=== PATIENT | male | born 1965 | race American Indian/Alaskan Native ===

== ENCOUNTER 2016-08-11 06:02 | Day surgery (SDC) | payer OTHER ==
[2016-08-11] MEDS ORDERED: ECOTRIN PO ONE (06:28)
[2016-08-11] MEDS ORDERED: NACL 0.9% 500 ML 500 ML IV SCH (07:00)
[2016-08-11 07:09] LABS: Basophils % (Auto) 0.3 % (0.0-1.8); Eosinophils % (Auto) 1.7 % (0.0-4.3); Hematocrit 42.8 % (35.5-45.6); Hemoglobin 14.8 gm/dl (11.8-15.2); Mean Corpuscular HGB Conc 35 % (32-34); Mean Corpuscular Hemoglobin 32 pg (28-32); Mean Corpuscular Volume 92 fl (84-94); Platelet Count 219 K/mm3 (140-440); Red Blood Count 4.66 M/mm3 (3.65-5.03); Red Cell Distribution Width 12.7 % (13.2-15.2); White Blood Count 3.7 K/mm3 (4.5-11.0)
[2016-08-11 07:17] LABS: INR 1.15 (0.87-1.13)
[2016-08-11 07:37] LABS: Anion Gap 14 mmol/L; Blood Urea Nitrogen 16 mg/dL (9-20); Calcium 8.4 mg/dL (8.4-10.2); Carbon Dioxide 28 mmol/L (22-30); Chloride 102.9 mmol/L (98-107); Glucose 91 mg/dL (75-100); Potassium 3.6 mmol/L (3.6-5.0); Sodium 141 mmol/L (137-145)
[2016-08-11] MEDS ORDERED: HEPARIN/NS 5000 UNIT/500ML(CATH LAB) 1,000 ML IR ONE (08:16)
[2016-08-11] MEDS ORDERED: NITROGLYCERIN SYRINGE 3 ML ONE (08:17)
[2016-08-11] MEDS: SUBLIMAZE ONE ×2 (08:48→09:05)
[2016-08-11] MEDS: VERSED ONE ×2 (08:49→09:05)
[2016-08-11] MEDS: CALAN ONE ×2 (08:49→09:13)
[2016-08-11] MEDS: XYLOCAINE 2% INFILTRATI ONE ×2 (08:50→09:10)
[2016-08-11] MEDS: HEPARIN 10,000 UNITS/10 ML ONE ×2 (08:50→09:13)
--- NOTE | 2016-08-11 09:31 | Short Stay Summary ---
Short Stay Documentation Date of service: 08/11/16 - History H&P: obtained from office - Allergies and Medications Current Medications: Allergies No Known Allergies Allergy (Verified 08/11/16 06:33) Home Medications Medication Instructions Recorded Confirmed Last Taken Type amLODIPine [Norvasc] 5 mg PO DAILY 08/11/16 08/11/16 08/10/16 History Active Medications Sodium Chloride (Nacl 0.9% 500 Ml) 500 mls @ 50 mls/hr IV DIRECT DOTTIE Stop: 08/11/16 16:59 Last Admin: 08/11/16 06:40 Dose: 50 mls/hr - Brief post op/procedure progress note Date of procedure: 08/11/16 Pre-op diagnosis: chest pain Post-op diagnosis: same Procedure: see report Anesthesia: local Estimated blood loss: none Pathology: none - Disposition Condition at discharge: Good Disposition: DISCHARGED TO HOME OR SELFCARE - Discharge Diagnoses (1) Chest pain Status: Chronic Qualifiers: Chest pain type: unspecified Qualified Code(s): R07.9 - Chest pain, unspecified (2) Abnormal stress ECG with treadmill Status: Resolved (3) Hypertension Status: Chronic Qualifiers: Hypertension type: essential hypertension Qualified Code(s): I10 - Essential (primary) hypertension Short Stay Discharge Plan Activity: advance as tolerated Diet: low fat, low cholesterol
[2016-08-11] MEDS ORDERED: NORCO 5/325 PO PRN (09:53)
[2016-08-11] MEDS ORDERED: ULTRAM PO PRN (09:53)
--- NOTE | 2016-08-11 11:12 | Cardiac Catherization Report ---
ORDERING PHYSICIAN Hunter White MD CLINICAL INFORMATION: This is a 51-year-old -[place] gentleman with history of hypertension presents with ongoing chest pain for the last 2 months, and mildly abnormal treadmill stress test. The patient in view of recurrent chest pain is here for a left heart catheterization. Performed via the right radial artery. Normal Quoc's test, sterile technique, local anesthesia, 5-Barbadian radial sheath inserted. PROCEDURE FINDINGS: Left system engaged with JL3.5 catheter. Left main is large and patent, bifurcates into large LAD that is patent. Circumflex and AV groove is large and patent, goes into a large OM1 that is patent with upper and lower branch. Distal circumflex is a medium caliber vessel that is patent. Diagonal 1 is a medium caliber vessel that is patent. RCA is a large dominant vessel engaged with JR4 catheter, patent from proximally to distally. PDA is a medium caliber vessel, patent. PLV is a small caliber vessel, patent. LV gram done in WILLIAM and NGO view shows normal LV function, EF 55-60%. LVEDP 18 mmHg, LV is 140/18, aortic is 137/80. No gradient across the aortic valve on pullback. 5-Barbadian catheters were taken over a guidewire, 5-Barbadian radial sheath was discontinued. Radial dressing applied. No hematoma. No bleeding. SUMMARY: 1. Normal coronaries, right dominant system. 2. Normal LV function, normal left end-diastolic pressure. 3. Noncardiac chest pain. Discussed in detail with the patient and the patient's family. [facility]# [id number] DELILAH/AVELINO SINGH
[2016-08-11 12:02] VITALS: BP 129/94
== END 2016-08-11 12:15 | disposition home or self-care (01) ==
LOC: OPU 06:02
PROVIDERS: ATTEND Internal Medicine
DX: R07.89 Other chest pain (principal); I10 Essential (primary) hypertension
CPT/HCPCS: 36415; 80048; 85025; 85610; 85730; 93005; 93010; 93458; C1894; J1644; J2250; J3010; J7040; Q9967

== ENCOUNTER 2020-10-11 18:04 | Emergency (ER) | payer OTHER ==
[2020-10-11] MEDS ORDERED: KETOROLAC 30 MG/1 ML INJ IV ONE (21:34)
--- NOTE | 2020-10-11 21:47 | XRay Report ---
CHEST 1 VIEW 10/11/2020 9:18 PM INDICATION / CLINICAL INFORMATION: Chest Pain. COMPARISON: None available. FINDINGS: SUPPORT DEVICES: None. HEART / MEDIASTINUM: No significant abnormality. LUNGS / PLEURA: No significant pulmonary or pleural abnormality. No pneumothorax. ADDITIONAL FINDINGS: No significant additional findings. IMPRESSION: 1. No acute findings. Signer Name: Eliecer Martinez MD Signed: 10/11/2020 9:43 PM Workstation Name: [id number]
[2020-10-11 21:49] LABS: Basophils % (Auto) 0.6 % (0.0-1.8); Eosinophils # (Auto) 0.1 K/mm3 (0.0-0.4); Eosinophils % (Auto) 2.1 % (0.0-4.3); Hemoglobin 15.3 gm/dl (11.8-15.2); Lymphocytes # (Auto) 1.9 K/mm3 (1.2-5.4); Lymphocytes % (Auto) 39.6 % (13.4-35.0); Mean Corpuscular HGB Conc 35 % (32-34); Mean Corpuscular Volume 93 fl (84-94); Monocytes # (Auto) 0.4 K/mm3 (0.0-0.8); Monocytes % (Auto) 9.1 % (0.0-7.3); Platelet Count 215 K/mm3 (140-440); Red Blood Count 4.73 M/mm3 (3.65-5.03)
[2020-10-11 22:14] LABS: Alanine Aminotransferase 14 units/L (7-56); Albumin 4.2 g/dL (3.9-5); BUN/Creatinine Ratio 13; Blood Urea Nitrogen 13 mg/dL (9-20); Calcium 8.5 mg/dL (8.4-10.2); Hemolysis Index 8
--- NOTE | 2020-10-11 23:17 | Emergency Department Report ---
ED Chest Pain HPI - General Chief Complaint: Chest Pain Stated Complaint: CHEST PAINS Time Seen by Provider: 10/11/20 21:30 Source: patient Mode of arrival: Ambulatory Limitations: No Limitations - History of Present Illness Initial Comments: Patient is a 55-year-old F [place] male with no significant past medical history who is presenting with chest pain for approximately a month. States the pain is worsened over the last 2 weeks. Is a constant pain is estimated at a 5 out of 10 in severity. States there is no exertional or pleuritic component. States is located center chest. Is not worse with movement of his arms or lying flat or eating. Patient says just a dull aching sensation of the 1 go away. Patient denies cough cold congestion fevers chills nausea vomiting at this time. - Related Data Home Medications Medication Instructions Recorded Confirmed Last Taken amLODIPine 5 mg PO DAILY 08/11/16 08/11/16 08/10/16 Previous Rx's Medication Instructions Recorded Last Taken Type Famotidine [Pepcid] 40 mg PO QHS #10 tablet 10/11/20 Unknown Rx Ketorolac [Toradol] 10 mg PO Q6H PRN #12 tablet 10/11/20 Unknown Rx Allergies Allergy/AdvReac Type Severity Reaction Status Date / Time No Known Allergies Allergy Verified 10/11/20 18:28 Heart Score - HEART Score History: Slightly suspicious EKG: Normal Age: 45-65 Risk factors: No known risk factors Troponin: < normal limit HEART Score: 1 ED Review of Systems ROS: Stated complaint: CHEST PAINS Other details as noted in HPI Comment: All other systems reviewed and negative ED Past Medical Hx - Past Medical History Hx Hypertension: Yes Hx of Cancer: Yes (prostate) Hx Arthritis: Yes Hx Headaches / Migraines: Yes - Social History Smoking Status: Never Smoker Substance Use Type: None - Medications Home Medications: Home Medications Medication Instructions Recorded Confirmed Last Taken Type amLODIPine 5 mg PO DAILY 08/11/16 08/11/16 08/10/16 History Famotidine [Pepcid] 40 mg PO QHS #10 tablet 10/11/20 Unknown Rx Ketorolac [Toradol] 10 mg PO Q6H PRN #12 tablet 10/11/20 Unknown Rx ED Physical Exam - General Limitations: No Limitations General appearance: alert, in no apparent distress - Head Head exam: Present: atraumatic, normocephalic - Eye Eye exam: Present: normal appearance, PERRL, EOMI - ENT ENT exam: Present: mucous membranes moist - Neck Neck exam: Present: normal inspection - Respiratory Respiratory exam: Present: normal lung sounds bilaterally. Absent: respiratory distress, wheezes, rales, rhonchi - Cardiovascular Cardiovascular Exam: Present: regular rate, normal rhythm, normal heart sounds. Absent: systolic murmur, diastolic murmur, rubs, gallop - GI/Abdominal GI/Abdominal exam: Present: soft, normal bowel sounds. Absent: distended, tenderness, guarding, rebound, rigid - Rectal Rectal exam: Present: deferred - Extremities Exam Extremities exam: Present: normal inspection - Back Exam Back exam: Present: normal inspection - Neurological Exam Neurological exam: Present: alert, oriented X3 - Psychiatric Psychiatric exam: Present: normal affect, normal mood - Skin Skin exam: Present: warm, dry, intact, normal color. Absent: rash ED Course Vital Signs 10/11/20 20:31 Pulse Rate 49 L Respiratory 15 Rate Blood Pressure 154/93 O2 Sat by Pulse 98 Oximetry ED Medical Decision Making - Lab Data Result diagrams: 10/11/20 21:26 10/11/20 21:26 Lab Results 10/11/20 10/11/20 Range/Units 21:26 21:26 WBC 4.8 (4.5-11.0) K/mm3 RBC 4.73 (3.65-5.03) M/mm3 Hgb 15.3 H (11.8-15.2) gm/dl Hct 44.0 (35.5-45.6) % MCV 93 (84-94) fl MCH 32 (28-32) pg MCHC 35 H (32-34) % RDW 13.0 L (13.2-15.2) % Plt Count 215 (140-440) K/mm3 Lymph % (Auto) 39.6 H (13.4-35.0) % [place] % (Auto) 9.1 H (0.0-7.3) % Eos % (Auto) 2.1 (0.0-4.3) % Baso % (Auto) 0.6 (0.0-1.8) % Lymph # (Auto) 1.9 (1.2-5.4) K/mm3 [place] # (Auto) 0.4 (0.0-0.8) K/mm3 Eos # (Auto) 0.1 (0.0-0.4) K/mm3 Baso # (Auto) 0.0 (0.0-0.1) K/mm3 Seg Neutrophils % 48.6 (40.0-70.0) % Seg Neutrophils # 2.3 (1.8-7.7) K/mm3 Sodium 142 (137-145) mmol/L Potassium 4.2 (3.6-5.0) mmol/L Chloride 105.6 (98-107) mmol/L Carbon Dioxide 27 (22-30) mmol/L Anion Gap 14 mmol/L BUN 13 (9-20) mg/dL Creatinine 1.0 (0.8-1.3) mg/dL Estimated GFR > 60 ml/min BUN/Creatinine Ratio 13 % Glucose 88 (75-100) mg/dL Calcium 8.5 (8.4-10.2) mg/dL Total Bilirubin 1.00 (0.1-1.2) mg/dL AST 13 (5-40) units/L ALT 14 (7-56) units/L Alkaline Phosphatase 77 (35-129) units/L Troponin T < 0.010 (0.00-0.029) ng/mL Total Protein 6.6 (6.3-8.2) g/dL Albumin 4.2 (3.9-5) g/dL Albumin/Globulin Ratio 1.8 % - EKG Data -: EKG Interpreted by [place] EKG shows normal: sinus rhythm, axis, intervals, QRS complexes, ST-T waves Rate: bradycardia (52) - Radiology Data Study Comments [facility] [address] [place] [address] XRay Report Signed Patient: ARCHANA CHARLES MR#: [id number] [birth year] : 1965 Acct:[id number] Age/Sex: 55 / M ADM Date: 10/11/20 Loc: ED Attending Dr: Ordering Physician: VIJAY GUTIERREZ MD Date of Service: 10/11/20 Procedure(s): XR chest 1V ap Accession Number(s): [id number] cc: VIJAY GUTIERREZ MD Fluoro Time In Minutes: CHEST 1 VIEW 10/11/2020 9:18 PM INDICATION / CLINICAL INFORMATION: Chest Pain. COMPARISON: None available. FINDINGS: SUPPORT DEVICES: None. HEART / MEDIASTINUM: No significant abnormality. LUNGS / PLEURA: No significant pulmonary or pleural abnormality. No pneumothora x. ADDITIONAL FINDINGS: No significant additional findings. IMPRESSION: 1. No acute findings. Signer Name: Juju Martinez MD Signed: 10/11/2020 9:43 PM Workstation Name: [id number] Transcribed By: Dictated By: JUJU MARTINEZ III Electronically Authenticated By: JUJU MARTINEZ III Signed Date/Time: 10/11/202142 - Medical Decision Making Patient has been ruled out for emergent cause of his chest pain. Patient will b e discharged home with follow-up with cardiology. Critical care attestation.: If time is entered above; I have spent that time in minutes in the direct care of this critically ill patient, excluding procedure time. ED Disposition Clinical Impression: Atypical chest pain Disposition: DC-01 TO HOME OR SELFCARE Is pt being admited?: No Does the pt Need Aspirin: No Condition: Stable Instructions: Nonspecific Chest Pain, Adult Referrals: VERONA LEWIS MD [Staff Physician] - 3-5 Days Time of Disposition: 23:16
[2020-10-12 00:32] VITALS: BP 140/91
--- NOTE | 2020-10-12 09:55 | Electrocardiograph Report ---
[facility] Test Date: 2020-10-11 Test Time: 18:33:29 Pat Name: ARCHANA CHARLES Department: Room: Gender: M [employer] As[employer]er: ANDREW : 1965 Requested By: VIJAY GUTIERREZ Order Number: [id number] Reading MD: Yung Khan Measurements Intervals [place] Rate: 52 P: 50 MD: 145 QRS: 25 QRSD: 91 T: 28 QT: 389 QTc: 361 Interpretive Statements Sinus bradycardia No previous ECG available for comparison Electronically Signed On 10-12-2020 6:55:11 PDT by Yung Khan
== END 2020-10-12 00:25 | disposition home or self-care (01) ==
LOC: ED 18:04
DX: R07.89 Other chest pain (principal); I10 Essential (primary) hypertension; K21.9 Gastro-esophageal reflux disease without esophagitis; G43.909 Migraine, unspecified, not intractable, without status migrainosus; Z79.899 Other long term (current) drug therapy
CPT/HCPCS: 36415; 71045; 80053; 84484; 85025; 93005; 96374; 99284; J1885